=== PATIENT | male | born 1975 ===

== ENCOUNTER 2019-12-11 17:31 | Inpatient (IN) | payer OTHER ==
[2019-12-11] MEDS ORDERED: SODIUM CHLORIDE 0.9% 1000 ML 1,000 ML IV ONE ×2 (17:45→19:28)
[2019-12-11] MEDS ORDERED: ONDANSETRON 4 MG/2 ML INJ IV ONE ×2 (17:46→21:12)
[2019-12-11] MEDS ORDERED: MORPHINE 4 MG/1 ML INJ IV ONE ×2 (17:46→19:28)
--- NOTE | 2019-12-11 17:47 | Emergency Department Report ---
HPI - General Chief Complaint: Abdominal Pain Time Seen by Provider: 12/11/19 17:44 - HPI HPI: 44-year-old male presents to the emergency department with a complaint of generalized abdominal pain, worse in the upper abdomen, that has been going o n since this morning. He denies any fever, nausea, vomiting, diarrhea, constipation. He has a history of diabetes but is not on any medication for it. He has not taken anything for his symptoms prior to presentation. No recent travel or sick contacts at home. ED Past Medical Hx - Past Medical History Previous Medical History?: Yes Hx Diabetes: Yes - Surgical History Past Surgical History?: No - Social History Smoking Status: Never Smoker Substance Use Type: None ED Review of Systems ROS: Stated complaint: ABD PAIN/NAUSEA,VOMITING Other details as noted in HPI Comment: All other systems reviewed and negative Constitutional: denies: chills, fever Eyes: denies: eye pain, vision change ENT: denies: ear pain, throat pain Respiratory: denies: cough, shortness of breath Cardiovascular: denies: chest pain, palpitations Gastrointestinal: abdominal pain, nausea. denies: vomiting, diarrhea Genitourinary: denies: dysuria, discharge Musculoskeletal: denies: back pain, arthralgia Skin: denies: rash, lesions Neurological: denies: headache, weakness Physical Exam - Physical Exam Vital Signs: Vital Signs 12/11/19 17:35 Temperature 98.6 F Pulse Rate 81 Respiratory 16 Rate Blood Pressure 136/81 [Left] O2 Sat by Pulse 100 Oximetry Physical Exam: GENERAL: The patient is well-developed well-nourished. HENT: Normocephalic. Atraumatic. Patient has moist mucous membranes. EYES: Extraocular motions are intact. NECK: Supple. Trachea is midline. CHEST/LUNGS: Clear to auscultation. There is no respiratory distress noted. HEART/CARDIOVASCULAR: Regular. There is no tachycardia. There is no murmur. ABDOMEN: Abdomen is soft. There is tenderness to palpation worst in the upper quadrants. Patient has normal bowel sounds. There is no abdominal distention. SKIN: Skin is warm and dry. NEURO: The patient is awake, alert, and cooperative. The patient has no focal neurologic deficits. Normal speech. MUSCULOSKELETAL: There is no tenderness or deformity. There is no limitation range of motion. There is no evidence of acute injury. ED Course Vital Signs 12/11/19 17:35 Temperature 98.6 F Pulse Rate 81 Respiratory 16 Rate Blood Pressure 136/81 [Left] O2 Sat by Pulse 100 Oximetry ED Medical Decision Making - Lab Data Result diagrams: 12/11/19 17:45 12/11/19 17:45 - Radiology Data Radiology results: report reviewed, image reviewed interpreted by me: Abdominal x-ray shows nonspecific nonobstructive bowel gas CT of the abdomen and pelvis with contrast INDICATION: Abdominal pain COMPARISON: None FINDINGS: Lung bases are clear. There is moderate fatty liver. The spleen, adrenal glands and kidneys show no significant abnormalities with a 1 cm low density in the mid left kidney probably a cyst. Gallbladder is dilated but no gallstones or wall thickening. There is good enhancement of the pancreas. However, there are moderate peripancreatic inflammatory changes surrounding the head, body and tail consistent with moderate pancreatitis. No pancreatic ductal dilation or focal fluid collection. No adenopathy in the upper abdomen. There is minimal hiatal hernia. No definite gastric or duodenal wall thickening. CT of the pelvis shows a small umbilical hernia containing fat. Appendix is seen and is normal. Prostate is not enlarged. There is slight sigmoid diverticulosis without diverticulitis. No pelvic or inguinal adenopathy. No significant skeletal lesion. IMPRESSION: Moderate pancreatitis without definite complication. LIMITED RUQ ABDOMINAL ULTRASOUND INDICATION: Pancreatitis. COMPARISON: CT scan abdomen/pelvis 12/11/2019. FINDINGS: Pancreas: Indistinct margins consistent with CT findings of acute pancreatitis. Abdominal Aorta: Poorly visualized. IVC: No significant abnormality. Liver: Liver measures 18 cm with increased echogenicity due to fatty infiltration. Gallbladder: Normal. Sonographic Greenberg's sign: Not performed. Bile ducts: No visualized choledocholithiasis. Common bile duct measures 6 mm. Free fluid: None. Additional Findings: None. IMPRESSION: 1. Fatty liver. 2. Pancreatic findings consistent with pancreatitis. 3. No demonstrated choledocolithiasis - Medical Decision Making This patient presents with a one-day history of abdominal pain, nausea and vomiting. His labs show hyponatremia, elevated LFTs, elevated bilirubin, and an elevated lipase level greater than 2000. CT scan of the abdomen and pelvis with IV contrast shows acute pancreatitis. Due to the elevated LFTs and elevated bilirubin, an ultrasound of the abdomen was completed but it did not show any choledocholithiasis. Patient has received IV fluid resuscitation, antiemetics and a few doses of IV analgesia. The patient will be admitted to the hospital for further evaluation and treatment and was accepted for admission by the hospitalist, Dr. Jimenez. Critical Care Time: Yes Critical care time in (mins) excluding proc time.: 35 Critical care attestation.: If time is entered above; I have spent that time in minutes in the direct care of this critically ill patient, excluding procedure time. Due to the immediate potential for life-threatening deterioration due to underlying metabolic and gastrointestinal conditions, I spent 35 minutes of critical care time with the patient. Critical Care Time: 35 minutes ED Disposition Clinical Impression: Elevated liver enzymes, Intractable abdominal pain, Elevated bilirubin Acute pancreatitis Qualifiers: Pancreatitis type: unspecified pancreatitis type Acute pancreatitis complication: unspecified Qualified Code(s): K85.90 - Acute pancreatitis without necrosis or infection, unspecified Disposition: 09 OP ADMIT IP TO THIS HOSP Is pt being admited?: Yes Condition: Serious Referrals: PRIMARY CARE, [Primary Care Provider] - 3-5 Days Time of Disposition: 21:39
[2019-12-11 17:57] LABS: Mean Corpuscular HGB Conc 36 % (32-34); Mean Corpuscular Volume 87 fl (84-94); Platelet Count 115 K/mm3 (140-440); Red Blood Count 5.21 M/mm3 (3.65-5.03); Red Cell Distribution Width 13.7 % (13.2-15.2)
[2019-12-11 18:12] LABS: Hematocrit 45.3 % (35.5-45.6); Hemoglobin 16.2 gm/dl (11.8-15.2)
[2019-12-11 18:19] LABS: Albumin 3.7 g/dL (3.9-5); BUN/Creatinine Ratio 17; Blood Urea Nitrogen 10 mg/dL (9-20); Calcium 8.1 mg/dL (8.4-10.2); Hemolysis Index 21
[2019-12-11 18:33] LABS: Alanine Aminotransferase 753 units/L (7-56)
--- NOTE | 2019-12-11 18:34 | XRay Report ---
ABDOMEN, 2 VIEWS 12/11/2019 INDICATION / CLINICAL INFORMATION: Abd pain. COMPARISON: None available. FINDINGS: The bowel gas pattern is normal. No evidence of pneumoperitoneum. Signer Name: Liban Ojeda MD Signed: 12/11/2019 6:30 PM Workstation Name: [id number]
[2019-12-11 19:44] LABS: Basophils % (Manual) 0 % (0.0-1.8); Eosinophils % (Manual) 0 % (0.0-4.3); RBC Morphology Normal; Total Cells Counted 100
--- NOTE | 2019-12-11 19:54 | Cat Scan Report ---
CT of the abdomen and pelvis with contrast INDICATION: Abdominal pain COMPARISON: None FINDINGS: Lung bases are clear. There is moderate fatty liver. The spleen, adrenal glands and kidneys show no significant abnormalities with a 1 cm low density in the mid left kidney probably a cyst. Ga llbladder is dilated but no gallstones or wall thickening. There is good enhancement of the pancreas. However, there are moderate peripancreatic inflammatory changes surrounding the head, body and tail consistent with moderate pancreatitis. No pancreatic ductal dilation or focal fluid collection. No ad enopathy in the upper abdomen. There is minimal hiatal hernia. No definite gastric or duodenal wall t hickening. CT of the pelvis shows a small umbilical hernia containing fat. Appendix is seen and is normal. Prost ate is not enlarged. There is slight sigmoid diverticulosis without diverticulitis. No pelvic or ingu inal adenopathy. No significant skeletal lesion. IMPRESSION: Moderate pancreatitis without definite complication. Automated exposure control was utilized to diminish radiation dose. Signer Name: Kyle Garrido MD Signed: 12/11/2019 7:50 PM Workstation Name: [email or web address]
[2019-12-11] MEDS ORDERED: ONDANSETRON 4 MG/2 ML INJ ONE (21:14)
--- NOTE | 2019-12-11 21:28 | Ultrasound Report ---
LIMITED RUQ ABDOMINAL ULTRASOUND INDICATION: Pancreatitis. COMPARISON: CT scan abdomen/pelvis 12/11/2019. FINDINGS: Pancreas: Indistinct margins consistent with CT findings of acute pancreatitis. Abdominal Aorta: Poorly visualized. IVC: No significant abnormality. Liver: Liver measures 18 cm with increased echogenicity due to fatty infiltration. Gallbladder: Normal. Sonographic Greenberg's sign: Not performed. Bile ducts: No visualized choledocholithiasis. Common bile duct measures 6 mm. Free fluid: None. Additional Findings: None. IMPRESSION: 1. Fatty liver. 2. Pancreatic findings consistent with pancreatitis. 3. No demonstrated choledocolithiasis Signer Name: Liban Ojeda MD Signed: 12/11/2019 9:23 PM Workstation Name: [id number]
[2019-12-11 21:30] LABS: Bilirubin,Urine NEG (Negative); Blood,Urine NEG (Negative); Color,Urine Yellow (Yellow); Protein,Urine <15 mg/dL mg/dL (Negative); Urobilinogen,Urine < 2.0 mg/dL (<2.0)
[2019-12-11] MEDS ORDERED: ACETAMINOPHEN 325 MG TAB PO PRN (21:53)
[2019-12-11] MEDS ORDERED: DEXTROSE 50% IN WATER (25GM) 50 ML SYRINGE IV PRN (21:57)
--- NOTE | 2019-12-11 22:02 | History and Physical Report ---
History of Present Illness Date of examination: 12/11/19 Date of admission: 12/11/2019 Chief complaint: Nausea and vomiting Abdominal pain History of present illness: 44-year-old male with known history of diabetes mellitus presenting to the emergency room today complaining of abdominal pain which has been ongoing since this morning. He has been having nausea and vomiting, but denies any diarrhea and no constipation. No hematuria or dysuria. He denies any fever or chills, no chest pain or shortness of breath. He denies any sick contacts and no recent travel, denies contact with anyone with COVID-19. Patient states that he drinks alcohol but quit drinking few weeks ago. Work-up in the emergency room including CT scan of the abdomen shows elevated liver enzymes, elevated lipase, CT reveals pancreatitis. Past History Past Medical History: diabetes Past Surgical History: No surgical history Social history: no significant social history Family history: no significant family history Medications and Allergies Allergies Allergy/AdvReac Type Severity Reaction Status Date / Time No Known Allergies Allergy Verified 12/11/19 17:38 Home Medications Medication Instructions Recorded Confirmed Last Taken Type No Known Home Medications [No 12/12/19 12/12/19 Unknown History Reported Home Medications] Review of Systems Constitutional: no fever, no chills Cardiovascular: no chest pain, no palpitations Respiratory: no cough, no shortness of breath Gastrointestinal: abdominal pain, nausea, vomiting Genitourinary Male: no dysuria, no hematuria, no flank pain Musculoskeletal: no neck stiffness, no low back pain Integumentary: no rash, no pruritis Neurological: no headaches, no confusion Psychiatric: no anxiety, no depression Exam - Constitutional Vitals: Temp Pulse Resp BP Pulse Ox 99.0 F 89 13 139/87 98 12/11/19 19:28 12/11/19 19:24 12/11/19 19:24 12/11/19 19:24 12/11/19 19:00 General appearance: Present: no acute distress, well-nourished - EENT Eyes: Present: PERRL, EOM intact ENT: hearing intact, clear oral mucosa, dentition normal - Neck Neck: Present: supple, normal ROM - Respiratory Respiratory effort: normal Respiratory: bilateral: CTA - Cardiovascular Rhythm: regular Heart Sounds: Present: S1 & S2 - Extremities Extremities: no ischemia, pulses intact, pulses symmetrical, No edema, Full ROM Peripheral Pulses: within normal limits - Abdominal General gastrointestinal: Present: soft, tender (Diffuse tenderness with guardin g, no rebound tenderness), non-distended, normal bowel sounds - Integumentary Integumentary: Present: clear, warm, dry, normal turgor. Absent: jaundice, pale - Musculoskeletal Musculoskeletal: strength equal bilaterally - Psychiatric Psychiatric: appropriate mood/affect, intact judgment & insight, cooperative - Neurologic Neurologic: CNII-XII intact, moves all extremities, gait normal Results - Labs CBC & Chem 7: 12/12/19 05:14 12/12/19 05:14 Labs: Abnormal lab results 12/11/19 12/11/19 Range/Units 17:45 17:45 WBC 17.6 H (4.5-11.0) K/mm3 RBC 5.21 H (3.65-5.03) M/mm3 Hgb 16.2 H (11.8-15.2) gm/dl MCHC 36 H (32-34) % Plt Count 115 L (140-440) K/mm3 Seg Neuts % (Manual) 93.0 H (40.0-70.0) % Lymphocytes % (Manual) 4.0 L (13.4-35.0) % Seg Neutrophils # Man 16.4 H (1.8-7.7) K/mm3 Lymphocytes # (Manual) 0.7 L (1.2-5.4) K/mm3 Sodium 124 L (137-145) mmol/L Chloride 86.5 L (98-107) mmol/L Carbon Dioxide 18 L (22-30) mmol/L Creatinine 0.6 L (0.8-1.5) mg/dL Glucose 271 H (75-100) mg/dL Calcium 8.1 L (8.4-10.2) mg/dL Total Bilirubin 2.60 H (0.1-1.2) mg/dL Direct Bilirubin 1.0 H (0-0.2) mg/dL AST 419 H (5-40) units/L ALT 753 H (7-56) units/L Alkaline Phosphatase 175 H (35-129) units/L Albumin 3.7 L (3.9-5) g/dL Lipase 2144 H (13-60) units/L Assessment and Plan - Patient Problems (1) Acute pancreatitis Current Visit: Yes Status: Acute Qualifiers: Pancreatitis type: unspecified pancreatitis type Acute pancreatitis complication: unspecified Qualified Code(s): K85.90 - Acute pancreatitis without necrosis or infection, unspecified Plan to address problem: Patient admitted and placed n.p.o. we will place on analgesic medication and IV fluid. (2) Elevated liver enzymes Current Visit: Yes Status: Acute Plan to address problem: Etiology is unclear but will monitor chemistry. Possibly related to alcohol abuse. We will also place a consult to oil field equipment mechanic for further evaluation and recommendation on the elevated liver enzymes and bilirubin. Ultrasound of the abdomen consistent with fatty liver and pancreatitis. No choledocholithiasis. (3) Intractable abdominal pain Current Visit: Yes Status: Acute Plan to address problem: Possibly secondary to the pancreatitis. Patient placed on IV Zofran as needed. (4) DVT prophylaxis Current Visit: Yes Status: Acute Plan to address problem: Placed on subcutaneous heparin. (5) Full code status Current Visit: Yes Status: Acute
[2019-12-11] MEDS ORDERED: MORPHINE 2 MG/1 ML INJ ONE (22:14)
[2019-12-11] MEDS: MORPHINE 2 MG/1 ML INJ IV PRN (22:16)
[2019-12-11] MEDS ORDERED: HYDROmorphone 2 MG/1 ML INJ IV ONE (23:23)
[2019-12-11] MEDS: ONDANSETRON 4 MG/2 ML INJ IV PRN (23:37)
[2019-12-11] MEDS: SODIUM CHLORIDE 0.9% 1000 ML 1,000 ML IV SCH (23:44)
[2019-12-12] MEDS: MORPHINE 2 MG/1 ML INJ IV PRN ×6 (02:57→21:41)
[2019-12-12] MEDS: ONDANSETRON 4 MG/2 ML INJ IV PRN (06:01)
[2019-12-12] MEDS: INSULIN LISPRO 100 UNIT/ML SUB-Q SCH ×4 (06:01→17:35)
[2019-12-12] MEDS: SODIUM CHLORIDE 0.9% 1000 ML 1,000 ML IV SCH ×2 (06:02→21:50)
[2019-12-12 06:09] LABS: Hematocrit 48.8 % (35.5-45.6); Hemoglobin 17.1 gm/dl (11.8-15.2); Mean Corpuscular HGB Conc 35 % (32-34); Mean Corpuscular Volume 89 fl (84-94); Platelet Count 105 K/mm3 (140-440); Red Blood Count 5.49 M/mm3 (3.65-5.03); Red Cell Distribution Width 14.1 % (13.2-15.2)
[2019-12-12 06:18] LABS: INR 1.16 (0.87-1.13)
[2019-12-12 06:30] LABS: Alanine Aminotransferase 559 units/L (7-56); Albumin 3.4 g/dL (3.9-5); BUN/Creatinine Ratio 17; Bilirubin,Direct 2.3 mg/dL (0-0.2); Blood Urea Nitrogen 12 mg/dL (9-20); Calcium 7.1 mg/dL (8.4-10.2); Hemolysis Index 25
[2019-12-12 06:40] LABS: Hepatitis C Virus Antibody Non-Reactive (NonReactive)
[2019-12-12 07:01] LABS: Anisocytosis 1+; Band Neutrophils # (Manual) 0.6 K/mm3; Basophils % (Manual) 0 % (0.0-1.8); Eosinophils % (Manual) 0 % (0.0-4.3); Platelet Estimate Consistent w Auto; Total Cells Counted 100
[2019-12-12 07:21] LABS: Hepatitis B Surface Antigen Non-Reactive (Negative)
--- NOTE | 2019-12-12 08:57 | Gastroenterology Consultation ---
History of Present Illness - Reason for Consult Consult date: 12/12/19 Acute pancreatitis Requesting physician: KAMRYN SIMTH - History of Present Illness 44-year-old male with known history of diabetes mellitus presented with 2 days of severe abdominal pain. He reports the pain is sharp, worsening, started in the epigastric area but now is in the entire upper abdomen and it is radiating around to the back. Associated with severe nausea and vomiting. Constant. Improved with pain medication worse with movement or palpation. Patient states that he drinks alcohol but quit drinking about 1 week ago, did not drink an excessive amount for him just 6 beers. Work-up in the emergency room including CT scan of the abdomen shows elevated liver enzymes, elevated lipase, CT reveals pancreatitis. Past Medical History: diabetes Past Surgical History: No surgical history Social history: + for recent Et[employer] use Family history: no significant family history Please see med rec list for meds, no known drug allergies Obtained/updated/reviewed patient's current medications Past History Past Medical History: diabetes Past Surgical History: No surgical history Social history: no significant social history Family history: no significant family history Medications and Allergies Allergies Allergy/AdvReac Type Severity Reaction Status Date / Time No Known Allergies Allergy Verified 12/11/19 17:38 Home Medications Medication Instructions Recorded Confirmed Last Taken Type No Known Home Medications [No 12/12/19 12/12/19 Unknown History Reported Home Medications] Active Meds: Active Medications Acetaminophen (Tylenol) 650 mg PO Q4H PRN PRN Reason: Pain MILD(1-3)/Fever >100.5/MTZ Dextrose (D50w (25gm) Syringe) 0 ml IV Q30MIN PRN; Protocol PRN Reason: Hypoglycemia Sodium Chloride (Nacl 0.9% 1000 Ml) 1,000 mls @ 150 mls/hr IV DIRECT PRATIMA Last Admin: 12/12/19 06:02 Dose: 150 mls/hr Documented by: Insulin Human Lispro (Humalog) 0 unit SUB-Q Q6HR PRATIMA; Protocol Last Admin: 12/12/19 06:01 Dose: 2 unit Documented by: Morphine Sulfate (Morphine) 2 mg IV Q4H PRN PRN Reason: Pain, Moderate (4-6) Last Admin: 12/12/19 06:02 Dose: 2 mg Documented by: Ondansetron HCl (Zofran) 4 mg IV Q8H PRN PRN Reason: Nausea And Vomiting Last Admin: 12/12/19 06:01 Dose: 4 mg Documented by: Sodium Chloride (Sodium Chloride Flush Syringe 10 Ml) 10 ml IV BID PRATIMA Last Admin: 12/11/19 23:37 Dose: 10 ml Documented by: Sodium Chloride (Sodium Chloride Flush Syringe 10 Ml) 10 ml IV PRN PRN PRN Reason: LINE FLUSH Review of Systems - Review of Systems All systems: negative (10 Systems reviewed and negative except as mentioned above in the history of present illness) Exam - Constitutional Vital Signs: Temp Pulse Resp BP Pulse Ox 98.6 F 100 H 18 133/95 96 12/12/19 08:00 12/12/19 08:00 12/12/19 08:00 12/12/19 08:00 12/12/19 08:00 General appearance: mild distress - EENT Eyes: EOM intact - Neck Neck: supple - Respiratory Respiratory effort: normal Respiratory: bilateral: CTA - Cardiovascular Rhythm: regular Extremities: No edema - Gastrointestinal General gastrointestinal: Present: tender, distended - Integumentary Integumentary: Present: dry - Musculoskeletal Musculoskeletal: normal - Neurologic Neurological: alert and oriented x3 - Psychiatric Psychiatric: appropriate mood/affect - Labs CBC & Chem 7: 12/12/19 05:14 12/12/19 05:14 Lab Results: Laboratory Results - last 24 hr 12/11/19 12/11/19 12/11/19 17:45 17:45 21:24 WBC 17.6 H RBC 5.21 H Hgb 16.2 H Hct 45.3 MCV 87 MCH 31 MCHC 36 H RDW 13.7 Plt Count 115 L Add Manual Diff Complete Total Counted 100 Seg Neutrophils % Glassie Seg Neuts % (Manual) 93.0 H Band Neutrophils % 0 Lymphocytes % (Manual) 4.0 L Reactive Lymphs % (Man) 0 Monocytes % (Manual) 3.0 Eosinophils % (Manual) 0 Basophils % (Manual) 0 Metamyelocytes % 0 Myelocytes % 0 Promyelocytes % 0 Blast Cells % 0 Nucleated RBC % Not Reportable Seg Neutrophils # Man 16.4 H Band Neutrophils # 0.0 Lymphocytes # (Manual) 0.7 L Abs React Lymphs (Man) 0.0 Monocytes # (Manual) 0.5 Eosinophils # (Manual) 0.0 Basophils # (Manual) 0.0 Metamyelocytes # 0.0 Myelocytes # 0.0 Promyelocytes # 0.0 Blast Cells # 0.0 WBC Morphology Not Reportable Hypersegmented Neuts Not Reportable Hyposegmented Neuts Not Reportable Hypogranular Neuts Not Reportable Smudge Cells Not Reportable Toxic Granulation Not Reportable Toxic Vacuolation Not Reportable Dohle Bodies Not Reportable Pelger-Huet Anomaly Not Reportable Jeanne Rods Not Reportable Platelet Estimate Not Reportable Clumped Platelets Not Reportable Plt Clumps, EDTA Not Reportable Large Platelets Not Reportable Giant Platelets Not Reportable Platelet Satelliting Not Reportable Plt Morphology Comment Not Reportable RBC Morphology Normal Dimorphic RBCs Not Reportable Polychromasia Not Reportable Hypochromasia Not Reportable Poikilocytosis Not Reportable Anisocytosis Not Reportable Microcytosis Not Reportable Macrocytosis Not Reportable Spherocytes Not Reportable Pappenheimer Bodies Not Reportable Sickle Cells Not Reportable Target Cells Not Reportable Tear Drop Cells Not Reportable Ovalocytes Not Reportable Helmet Cells Not Reportable [place] Bodies Not Reportable [place] Rings Not Reportable Rebel Cells Not Reportable Bite Cells Not Reportable Crenated Cell Not Reportable Elliptocytes Not Reportable Acanthocytes (Spur) Not Reportable Rouleaux Not Reportable Hemoglobin C Crystals Not Reportable Schistocytes Not Reportable Malaria parasites Not Reportable Adrian Bodies Not Reportable Hem Pathologist Commnt No PT INR Sodium 124 L Potassium 3.8 Chloride 86.5 L Carbon Dioxide 18 L Anion Gap 23 BUN 10 Creatinine 0.6 L Estimated GFR > 60 BUN/Creatinine Ratio 17 Glucose 271 H POC Glucose Calcium 8.1 L Total Bilirubin 2.60 H Direct Bilirubin 1.0 H Indirect Bilirubin 1.6 AST 419 H ALT 753 H Alkaline Phosphatase 175 H Total Protein 7.0 Albumin 3.7 L Albumin/Globulin Ratio 1.1 Lipase 2144 H Urine Color Yellow Urine Turbidity Clear Urine pH 6.0 Ur Specific [place] 1.024 Urine Protein <15 mg/dl Urine Glucose (UA) 150 Urine Ketones Neg Urine Blood Neg Urine Nitrite Neg Urine Bilirubin Neg Urine Urobilinogen < 2.0 Ur Leukocyte Esterase Neg Urine WBC (Auto) 1.0 Urine RBC (Auto) 1.0 Hepatitis A IgM Ab Hep Bs Antigen Hep B Core IgM Ab Hepatitis C Antibody 12/12/19 12/12/19 12/12/19 00:12 05:14 05:14 WBC 15.6 H RBC 5.49 H Hgb 17.1 H Hct 48.8 H MCV 89 MCH 31 MCHC 35 H RDW 14.1 Plt Count 105 L Add Manual Diff Complete Total Counted 100 Seg Neutrophils % Seg Neuts % (Manual) 91.0 H Band Neutrophils % 4.0 Lymphocytes % (Manual) 1.0 L Reactive Lymphs % (Man) 0 Monocytes % (Manual) 4.0 Eosinophils % (Manual) 0 Basophils % (Manual) 0 Metamyelocytes % 0 Myelocytes % 0 Promyelocytes % 0 Blast Cells % 0 Nucleated RBC % Not Reportable Seg Neutrophils # Man 14.2 H Band Neutrophils # 0.6 Lymphocytes # (Manual) 0.2 L Abs React Lymphs (Man) 0.0 Monocytes # (Manual) 0.6 Eosinophils # (Manual) 0.0 Basophils # (Manual) 0.0 Metamyelocytes # 0.0 Myelocytes # 0.0 Promyelocytes # 0.0 Blast Cells # 0.0 WBC Morphology Not Reportable Hypersegmented Neuts Not Reportable Hyposegmented Neuts Not Reportable Hypogranular Neuts Not Reportable Smudge Cells Not Reportable Toxic Granulation Not Reportable Toxic Vacuolation Not Reportable Dohle Bodies Not Reportable Pelger-Huet Anomaly Not Reportable Jeanne Rods Not Reportable Platelet Estimate Consistent w auto Clumped Platelets Not Reportable Plt Clumps, EDTA Not Reportable Large Platelets Not Reportable Giant Platelets Not Reportable Platelet Satelliting Not Reportable Plt Morphology Comment Not Reportable RBC Morphology Not Reportable Dimorphic RBCs Not Reportable Polychromasia Not Reportable Hypochromasia Not Reportable Poikilocytosis Not Reportable Anisocytosis 1+ Microcytosis Not Reportable Macrocytosis Not Reportable Spherocytes Not Reportable Pappenheimer Bodies Not Reportable Sickle Cells Not Reportable Target Cells Not Reportable Tear Drop Cells Not Reportable Ovalocytes Not Reportable Helmet Cells Not Reportable [place] Bodies Not Reportable [place] Rings Not Reportable [place] Cells Not Reportable Bite Cells Not Reportable Crenated Cell Not Reportable Elliptocytes Not Reportable Acanthocytes (Spur) Not Reportable Rouleaux Not Reportable Hemoglobin C Crystals Not Reportable Schistocytes Not Reportable Malaria parasites Not Reportable Adrian Bodies Not Reportable Hem Pathologist Commnt No PT 14.9 INR 1.16 H Sodium Potassium Chloride Carbon Dioxide Anion Gap BUN Creatinine Estimated GFR BUN/Creatinine Ratio Glucose POC Glucose 179 H Calcium Total Bilirubin Direct Bilirubin Indirect Bilirubin AST ALT Alkaline Phosphatase Total Protein Albumin Albumin/Globulin Ratio Lipase Urine Color Urine Turbidity Urine pH Ur Specific [place] Urine Protein Urine Glucose (UA) Urine Ketones Urine Blood Urine Nitrite Urine Bilirubin Urine Urobilinogen Ur Leukocyte Esterase Urine WBC (Auto) Urine RBC (Auto) Hepatitis A IgM Ab Hep Bs Antigen Hep B Core IgM Ab Hepatitis C Antibody 12/12/19 12/12/19 12/12/19 05:14 05:14 05:50 WBC RBC Hgb Hct MCV MCH MCHC RDW Plt Count Add Manual Diff Total Counted Seg Neutrophils % Seg Neuts % (Manual) Band Neutrophils % Lymphocytes % (Manual) Reactive Lymphs % (Man) Monocytes % (Manual) Eosinophils % (Manual) Basophils % (Manual) Metamyelocytes % Myelocytes % Promyelocytes % Blast Cells % Nucleated RBC % Seg Neutrophils # Man Band Neutrophils # Lymphocytes # (Manual) Abs React Lymphs (Man) Monocytes # (Manual) Eosinophils # (Manual) Basophils # (Manual) Metamyelocytes # Myelocytes # Promyelocytes # Blast Cells # WBC Morphology Hypersegmented Neuts Hyposegmented Neuts Hypogranular Neuts Smudge Cells Toxic Granulation Toxic Vacuolation Dohle Bodies Pelger-Huet Anomaly Jeanne Rods Platelet Estimate Clumped Platelets Plt Clumps, EDTA Large Platelets Giant Platelets Platelet Satelliting Plt Morphology Comment RBC Morphology Dimorphic RBCs Polychromasia Hypochromasia Poikilocytosis Anisocytosis Microcytosis Macrocytosis Spherocytes Pappenheimer Bodies Sickle Cells Target Cells Tear Drop Cells Ovalocytes Helmet Cells [place] Bodies [place] Rings Bruce Cells Bite Cells Crenated Cell Elliptocytes Acanthocytes (Spur) Rouleaux Hemoglobin C Crystals Schistocytes Malaria parasites Adrian Bodies Hem Pathologist Commnt PT INR Sodium 131 L D Potassium 4.3 Chloride 92.8 L Carbon Dioxide 19 L Anion Gap 24 BUN 12 Creatinine 0.7 L Estimated GFR > 60 BUN/Creatinine Ratio 17 Glucose 291 H POC Glucose 237 H Calcium 7.1 L Total Bilirubin 4.80 H Direct Bilirubin 2.3 H Indirect Bilirubin 2.5 AST 290 H ALT 559 H Alkaline Phosphatase 153 H Total Protein 6.6 Albumin 3.4 L Albumin/Globulin Ratio 1.1 Lipase Urine Color Urine Turbidity Urine pH Ur Specific [place] Urine Protein Urine Glucose (UA) Urine Ketones Urine Blood Urine Nitrite Urine Bilirubin Urine Urobilinogen Ur Leukocyte Esterase Urine WBC (Auto) Urine RBC (Auto) Hepatitis A IgM Ab Non-reactive Hep Bs Antigen Non-reactive Hep B Core IgM Ab Non-reactive Hepatitis C Antibody Non-reactive 12/12/19 08:11 WBC RBC Hgb Hct MCV MCH MCHC RDW Plt Count Add Manual Diff Total Counted Seg Neutrophils % Seg Neuts % (Manual) Band Neutrophils % Lymphocytes % (Manual) Reactive Lymphs % (Man) Monocytes % (Manual) Eosinophils % (Manual) Basophils % (Manual) Metamyelocytes % Myelocytes % Promyelocytes % Blast Cells % Nucleated RBC % Seg Neutrophils # Man Band Neutrophils # Lymphocytes # (Manual) Abs React Lymphs (Man) Monocytes # (Manual) Eosinophils # (Manual) Basophils # (Manual) Metamyelocytes # Myelocytes # Promyelocytes # Blast Cells # WBC Morphology Hypersegmented Neuts Hyposegmented Neuts Hypogranular Neuts Smudge Cells Toxic Granulation Toxic Vacuolation Dohle Bodies Pelger-Huet Anomaly Jeanne Rods Platelet Estimate Clumped Platelets Plt Clumps, EDTA Large Platelets Giant Platelets Platelet Satelliting Plt Morphology Comment RBC Morphology Dimorphic RBCs Polychromasia Hypochromasia Poikilocytosis Anisocytosis Microcytosis Macrocytosis Spherocytes Pappenheimer Bodies Sickle Cells Target Cells Tear Drop Cells Ovalocytes Helmet Cells [place] Bodies [place] Rings Rebel Cells Bite Cells Crenated Cell Elliptocytes Acanthocytes (Spur) Rouleaux Hemoglobin C Crystals Schistocytes Malaria parasites Adrian Bodies Hem Pathologist Commnt PT INR Sodium Potassium Chloride Carbon Dioxide Anion Gap BUN Creatinine Estimated GFR BUN/Creatinine Ratio Glucose POC Glucose 265 H Calcium Total Bilirubin Direct Bilirubin Indirect Bilirubin AST ALT Alkaline Phosphatase Total Protein Albumin Albumin/Globulin Ratio Lipase Urine Color Urine Turbidity Urine pH Ur Specific [place] Urine Protein Urine Glucose (UA) Urine Ketones Urine Blood Urine Nitrite Urine Bilirubin Urine Urobilinogen Ur Leukocyte Esterase Urine WBC (Auto) Urine RBC (Auto) Hepatitis A IgM Ab Hep Bs Antigen Hep B Core IgM Ab Hepatitis C Antibody Assessment and Plan Patient with worsening hemoconcentration this morning which is a worrisome sign in the setting of severe acute pancreatitis Therefore I am giving another bolus of 1 L fluids, increasing his standing fluid dose from 150 cc an hour to 200 cc an hour Please monitor closely to ensure patient does not develop flash pulmonary edema I also increased his antinausea medication to a standing dose He may be started on a diet per the current updated guidelines regarding management of acute pancreatitis so I put in an order for clear liquids Regarding etiology for the acute pancreatitis, alcohol highest on the differential diagnosis. We will obtain triglycerides in the a.m. Regarding elevated liver enzymes, most likely acute alcoholic related imaging does not indicate biliary obstruction and acute hepatitis panel is negative Recommend continued to trend liver enzymes - Patient Problems (1) Acute pancreatitis Current Visit: Yes Status: Acute Qualifiers: Pancreatitis type: unspecified pancreatitis type Acute pancreatitis complication: unspecified Qualified Code(s): K85.90 - Acute pancreatitis without necrosis or infection, unspecified (2) Elevated bilirubin Current Visit: Yes Status: Acute (3) Elevated liver enzymes Current Visit: Yes Status: Acute (4) Intractable abdominal pain Current Visit: Yes Status: Acute
[2019-12-12] MEDS ORDERED: LACTATED RINGERS 1,000 ML IV ONE (10:00)
[2019-12-12] MEDS ORDERED: LORazepam 2 MG/ML VIAL IV PRN (11:00)
[2019-12-12] MEDS: ONDANSETRON 4 MG/2 ML INJ IV SCH ×2 (12:30→17:32)
--- NOTE | 2019-12-12 12:58 | Progress Note ---
Assessment and Plan /Acute pancreatitis cont on analgesic medication and IV fluid. GI following, will start clear liquid diet / Elevated liver enzymes likely from chronic alcohol abuse Ultrasound of the abdomen consistent with fatty liver and pancreatitis. No choledocholithiasis. / Intractable abdominal pain Possibly secondary to the pancreatitis. Patient placed on IV morphin as needed. /Alcohol abuse, counselled for cessation monitor for withdrawal, ativan as needed /DM type 2, SSI for now / DVT prophylaxis, SCD /Full code status 12/11: monitor BMP and LFT, cont iv fluid, pain meds as needed. will start on clear liquid diet today Brief History: 44-year-old male with known history of diabetes mellitus presented with 2 days of severe abdominal pain in the epigastric radiating around to the back associated with severe nausea and vomiting. Patient admits regular drinking, last drink was 4 days ago and had total 12 beer. Work-up in the emergency room shows elevated liver enzymes, elevated lipase, CT reveals pancreatitis. Admitted for further evaluation and Mx. Physical exam: General appearance: mild distress - EENT Eyes: EOM intact - Neck Neck: supple - Respiratory Respiratory effort: normal Respiratory: bilateral: CTA - Cardiovascular Rhythm: regular Extremities: No edema - Gastrointestinal General gastrointestinal: Present: tender, distended - Integumentary Integumentary: Present: dry - Musculoskeletal Musculoskeletal: normal - Neurologic Neurological: alert and oriented x3 - Psychiatric Psychiatric: appropriate mood/affect Subjective Date of service: 12/12/19 Interval history: Patient seen and examined. Medical records and medication list reviewed. No acute event overnight noted by the RN. Patient continued to complains of epigastric pain. Discussed plan of care at bedside with patient. Objective - Constitutional Vitals: Vital Signs - 12hr 12/12/19 12/12/19 04:10 08:00 Temperature 97.9 F 98.6 F Pulse Rate 108 H 100 H Respiratory 19 18 Rate Blood Pressure 137/96 133/95 O2 Sat by Pulse 95 96 Oximetry - Labs CBC & Chem 7: 12/13/19 04:57 12/13/19 04:57 Labs: Abnormal lab results 12/11/19 12/11/19 12/12/19 Range/Units 17:45 17:45 00:12 WBC 17.6 H (4.5-11.0) K/mm3 RBC 5.21 H (3.65-5.03) M/mm3 Hgb 16.2 H (11.8-15.2) gm/dl Hct (35.5-45.6) % MCHC 36 H (32-34) % Plt Count 115 L (140-440) K/mm3 Seg Neuts % (Manual) 93.0 H (40.0-70.0) % Lymphocytes % (Manual) 4.0 L (13.4-35.0) % Seg Neutrophils # Man 16.4 H (1.8-7.7) K/mm3 Lymphocytes # (Manual) 0.7 L (1.2-5.4) K/mm3 INR (0.87-1.13) Sodium 124 L (137-145) mmol/L Chloride 86.5 L (98-107) mmol/L Carbon Dioxide 18 L (22-30) mmol/L Creatinine 0.6 L (0.8-1.5) mg/dL Glucose 271 H (75-100) mg/dL POC Glucose 179 H (70-105) Calcium 8.1 L (8.4-10.2) mg/dL Total Bilirubin 2.60 H (0.1-1.2) mg/dL Direct Bilirubin 1.0 H (0-0.2) mg/dL AST 419 H (5-40) units/L ALT 753 H (7-56) units/L Alkaline Phosphatase 175 H (35-129) units/L Albumin 3.7 L (3.9-5) g/dL Lipase 2144 H (13-60) units/L 12/12/19 12/12/19 12/12/19 Range/Units 05:14 05:14 05:14 WBC 15.6 H (4.5-11.0) K/mm3 RBC 5.49 H (3.65-5.03) M/mm3 Hgb 17.1 H (11.8-15.2) gm/dl Hct 48.8 H (35.5-45.6) % MCHC 35 H (32-34) % Plt Count 105 L (140-440) K/mm3 Seg Neuts % (Manual) 91.0 H (40.0-70.0) % Lymphocytes % (Manual) 1.0 L (13.4-35.0) % Seg Neutrophils # Man 14.2 H (1.8-7.7) K/mm3 Lymphocytes # (Manual) 0.2 L (1.2-5.4) K/mm3 INR 1.16 H (0.87-1.13) Sodium 131 L D (137-145) mmol/L Chloride 92.8 L (98-107) mmol/L Carbon Dioxide 19 L (22-30) mmol/L Creatinine 0.7 L (0.8-1.5) mg/dL Glucose 291 H (75-100) mg/dL POC Glucose (70-105) Calcium 7.1 L (8.4-10.2) mg/dL Total Bilirubin 4.80 H (0.1-1.2) mg/dL Direct Bilirubin 2.3 H (0-0.2) mg/dL AST 290 H (5-40) units/L ALT 559 H (7-56) units/L Alkaline Phosphatase 153 H (35-129) units/L Albumin 3.4 L (3.9-5) g/dL Lipase (13-60) units/L 12/12/19 12/12/19 Range/Units 05:50 08:11 WBC (4.5-11.0) K/mm3 RBC (3.65-5.03) M/mm3 Hgb (11.8-15.2) gm/dl Hct (35.5-45.6) % MCHC (32-34) % Plt Count (140-440) K/mm3 Seg Neuts % (Manual) (40.0-70.0) % Lymphocytes % (Manual) (13.4-35.0) % Seg Neutrophils # Man (1.8-7.7) K/mm3 Lymphocytes # (Manual) (1.2-5.4) K/mm3 INR (0.87-1.13) Sodium (137-145) mmol/L Chloride (98-107) mmol/L Carbon Dioxide (22-30) mmol/L Creatinine (0.8-1.5) mg/dL Glucose (75-100) mg/dL POC Glucose 237 H 265 H (70-105) Calcium (8.4-10.2) mg/dL Total Bilirubin (0.1-1.2) mg/dL Direct Bilirubin (0-0.2) mg/dL AST (5-40) units/L ALT (7-56) units/L Alkaline Phosphatase (35-129) units/L Albumin (3.9-5) g/dL Lipase (13-60) units/L
[2019-12-12] MEDS: HEPARIN 5,000 UNIT/1 ML VIAL SUB-Q SCH (22:00)
[2019-12-13] MEDS: ONDANSETRON 4 MG/2 ML INJ IV SCH ×4 (00:04→18:34)
[2019-12-13] MEDS: MORPHINE 2 MG/1 ML INJ IV PRN ×4 (01:41→18:34)
[2019-12-13] MEDS: SODIUM CHLORIDE 0.9% 1000 ML 1,000 ML IV SCH ×2 (03:51→18:34)
[2019-12-13 05:34] LABS: Hemoglobin 16.2 gm/dl (11.8-15.2); Mean Corpuscular HGB Conc 35 % (32-34); Mean Corpuscular Volume 91 fl (84-94); Red Blood Count 5.14 M/mm3 (3.65-5.03); Red Cell Distribution Width 14.2 % (13.2-15.2)
[2019-12-13 05:37] LABS: Platelet Count 87 K/mm3 (140-440)
[2019-12-13 05:53] LABS: Alanine Aminotransferase 302 units/L (7-56); Albumin 2.8 g/dL (3.9-5); BUN/Creatinine Ratio 27; Bilirubin,Direct 4.1 mg/dL (0-0.2); Blood Urea Nitrogen 27 mg/dL (9-20); Calcium 6.3 mg/dL (8.4-10.2)
[2019-12-13] MEDS: HEPARIN 5,000 UNIT/1 ML VIAL SUB-Q SCH ×3 (06:35→21:54)
[2019-12-13] MEDS: INSULIN LISPRO 100 UNIT/ML SUB-Q SCH ×4 (06:36→17:09)
--- NOTE | 2019-12-13 08:42 | Gastroenterology Progress Note ---
Assessment and Plan Patient with gradually improving hemoconcentration this morning, but he remains tachycardic and hemoconcentrated therefore will give another bolus of normal saline and continue aggressive hydration though hyponatremia starting so will need to monitor closely Please monitor closely to ensure patient does not develop flash pulmonary edema Cont antinausea medication and pain control I will add on medication for the patient's constipation Patient's diet was advanced today at this morning, as long as he tolerates may continue current diet Regarding etiology for the acute pancreatitis, alcohol highest on the differential diagnosis. We will obtain triglycerides in the a.m. (tomorrow, the order didn't go through for this am); I ordered AM labs for tomorrow including INR Regarding elevated liver enzymes, most likely acute alcoholic related imaging does not indicate biliary obstruction and acute hepatitis panel is negative and alk phos normal despite the elevated bili Recommend continued to trend liver enzymes, and expect AST/ALT to continue gradual decline and the bili will lag by a day or two so will likely start to decline around Friday Regarding thrombocytopenia, may be combination of dilution plus alcohol related plus alcoholic hepatitis related. However, do need to be concerned about heparin-induced thrombocytopenia, consider evaluation for HIT if platelets continue to drop (went from 115 on admission to 80 today) - Patient Problems (1) Acute pancreatitis Current Visit: Yes Status: Acute Qualifiers: Pancreatitis type: unspecified pancreatitis type Acute pancreatitis complication: unspecified Qualified Code(s): K85.90 - Acute pancreatitis wit hout necrosis or infection, unspecified (2) Elevated bilirubin Current Visit: Yes Status: Acute (3) Elevated liver enzymes Current Visit: Yes Status: Acute (4) Intractable abdominal pain Current Visit: Yes Status: Acute Subjective Date of service: 12/13/19 Principal diagnosis: pancreatitis Interval history: Patient reports mild improvement in abdominal pain, still severe, sharp, radiating around to the back, originating in the upper abdomen spreading throughout the entire abdomen, constant, worse with palpation better with pain medication He reports no bowel movement in 6 days Reports he is passing gas and tolerating clear liquid diet Objective - Constitutional Vitals: Temp Pulse Resp BP Pulse Ox 98.3 F 122 H 18 121/90 95 12/13/19 04:07 12/13/19 04:07 12/13/19 04:07 12/13/19 04:07 12/13/19 04:07 General appearance: no acute distress - EENT ENT: hearing intact - Neck Neck: supple - Respiratory Respiratory: bilateral: CTA - Cardiovascular Rhythm: other (Tachycardic) - Extremities Extremities: No edema - Gastrointestinal General gastrointestinal: Present: tender, distended - Labs CBC & Chem 7: 12/13/19 04:57 12/13/19 04:57 Labs: Laboratory Results - last 24 hr 12/12/19 12/12/19 12/13/19 15:52 20:49 04:57 WBC 11.0 RBC 5.14 H Hgb 16.2 H Hct 47.0 H MCV 91 MCH 32 MCHC 35 H RDW 14.2 Plt Count 87 L Sodium Potassium Chloride Carbon Dioxide Anion Gap BUN Creatinine Estimated GFR BUN/Creatinine Ratio Glucose POC Glucose 344 H 292 H Calcium Total Bilirubin Direct Bilirubin Indirect Bilirubin AST ALT Alkaline Phosphatase Total Protein Albumin Albumin/Globulin Ratio 12/13/19 12/13/19 04:57 05:54 WBC RBC Hgb Hct MCV MCH MCHC RDW Plt Count Sodium 126 L Potassium 4.6 Chloride 88.1 L Carbon Dioxide 21 L Anion Gap 22 BUN 27 H Creatinine 1.0 Estimated GFR > 60 BUN/Creatinine Ratio 27 Glucose 365 H POC Glucose 306 H Calcium 6.3 L Total Bilirubin 5.80 H Direct Bilirubin 4.1 H Indirect Bilirubin 1.7 AST 144 H ALT 302 H Alkaline Phosphatase 106 Total Protein 6.1 L Albumin 2.8 L Albumin/Globulin Ratio 0.8
[2019-12-13 09:37] LABS: Band Neutrophils # (Manual) 2.3 K/mm3; Basophils % (Manual) 0 % (0.0-1.8); Eosinophils % (Manual) 0 % (0.0-4.3); Total Cells Counted 100
[2019-12-13] MEDS ORDERED: SODIUM CHLORIDE 0.9% 1000 ML 1,000 ML IV ONE (09:37)
[2019-12-13 09:38] LABS: RBC Morphology Normal
[2019-12-13 09:39] LABS: Platelet Estimate Consistent w Auto
[2019-12-13] MEDS: POLYETHYLENE GLYCOL 3350 17 GM POWDER PO SCH ×2 (11:20→21:54)
--- NOTE | 2019-12-13 14:52 | Progress Note ---
Assessment and Plan /Acute pancreatitis cont on analgesic medication and IV fluid. GI following, will advance to GI soft diet /SIRS with organ dysfunction, POA - due to pancreatitis, treat underlying cause / Elevated liver enzymes likely from chronic alcohol abuse Ultrasound of the abdomen consistent with fatty liver and pancreatitis. No choledocholithiasis. / Intractable abdominal pain Possibly secondary to the pancreatitis. Patient placed on IV morphin as needed. /Alcohol abuse, counselled for cessation monitor for withdrawal, ativan as needed /DM type 2, - on SSI. add long acting insulin, check a1c / DVT prophylaxis, SCD /Full code status 12/11: monitor BMP and LFT, cont iv fluid, pain meds as needed. will start on clear liquid diet today 12/12; advance diet, cont iv fluid. BG > 400, add long acting insulin, check a1c. if clinically stable, possible d/c charisma am Brief History: 44-year-old male with known history of diabetes mellitus presented with 2 days of severe abdominal pain in the epigastric radiating around to the back associated with severe nausea and vomiting. Patient admits regular drinking, last drink was 4 days ago and had total 12 beer. Work-up in the emergency room shows elevated liver enzymes, elevated lipase, CT reveals pancreatitis. Admitted for further evaluation and Mx. Physical exam: General appearance: mild distress - EENT Eyes: EOM intact - Neck Neck: supple - Respiratory Respiratory effort: normal Respiratory: bilateral: CTA - Cardiovascular Rhythm: regular Extremities: No edema - Gastrointestinal General gastrointestinal: Present: tender, distended - Integumentary Integumentary: Present: dry - Musculoskeletal Musculoskeletal: normal - Neurologic Neurological: alert and oriented x3 - Psychiatric Psychiatric: appropriate mood/affect Subjective Date of service: 12/13/19 Principal diagnosis: pancreatitis Interval history: Patient seen and examined. Medical records and medication list reviewed. No acute event overnight noted by the RN. Patient continued to complains of epigastric pain but states that improving. tolerated clear liquid, no vomiting but still has nausea Discussed plan of care at bedside with patient. Objective - Constitutional Vitals: Vital Signs - 12hr 12/13/19 12/13/19 04:07 08:19 Temperature 98.3 F 99.0 F Pulse Rate 122 H 129 H Respiratory 18 24 Rate Blood Pressure 121/90 125/88 O2 Sat by Pulse 95 96 Oximetry - Labs CBC & Chem 7: 12/14/19 05:09 12/14/19 05:09 Labs: Abnormal lab results 12/12/19 12/12/19 12/13/19 Range/Units 15:52 20:49 04:57 RBC 5.14 H (3.65-5.03) M/mm3 Hgb 16.2 H (11.8-15.2) gm/dl Hct 47.0 H (35.5-45.6) % MCHC 35 H (32-34) % Plt Count 87 L (140-440) K/mm3 Seg Neuts % (Manual) 74.0 H (40.0-70.0) % Lymphocytes % (Manual) 3.0 L (13.4-35.0) % Seg Neutrophils # Man 8.1 H (1.8-7.7) K/mm3 Lymphocytes # (Manual) 0.3 L (1.2-5.4) K/mm3 Sodium (137-145) mmol/L Chloride (98-107) mmol/L Carbon Dioxide (22-30) mmol/L BUN (9-20) mg/dL Glucose (75-100) mg/dL POC Glucose 344 H 292 H (70-105) Calcium (8.4-10.2) mg/dL Total Bilirubin (0.1-1.2) mg/dL Direct Bilirubin (0-0.2) mg/dL AST (5-40) units/L ALT (7-56) units/L Total Protein (6.3-8.2) g/dL Albumin (3.9-5) g/dL 12/13/19 12/13/19 12/13/19 Range/Units 04:57 05:54 12:27 RBC (3.65-5.03) M/mm3 Hgb (11.8-15.2) gm/dl Hct (35.5-45.6) % MCHC (32-34) % Plt Count (140-440) K/mm3 Seg Neuts % (Manual) (40.0-70.0) % Lymphocytes % (Manual) (13.4-35.0) % Seg Neutrophils # Man (1.8-7.7) K/mm3 Lymphocytes # (Manual) (1.2-5.4) K/mm3 Sodium 126 L (137-145) mmol/L Chloride 88.1 L (98-107) mmol/L Carbon Dioxide 21 L (22-30) mmol/L BUN 27 H (9-20) mg/dL Glucose 365 H (75-100) mg/dL POC Glucose 306 H 405 H (70-105) Calcium 6.3 L (8.4-10.2) mg/dL Total Bilirubin 5.80 H (0.1-1.2) mg/dL Direct Bilirubin 4.1 H (0-0.2) mg/dL AST 144 H (5-40) units/L ALT 302 H (7-56) units/L Total Protein 6.1 L (6.3-8.2) g/dL Albumin 2.8 L (3.9-5) g/dL
[2019-12-13] MEDS: INSULIN NPH, HUMAN 100 UNIT/1 ML SUB-Q SCH (17:09)
[2019-12-14] MEDS: INSULIN LISPRO 100 UNIT/ML SUB-Q SCH ×2 (01:08→05:43)
[2019-12-14] MEDS: ONDANSETRON 4 MG/2 ML INJ IV SCH ×2 (01:09→05:43)
[2019-12-14] MEDS: HEPARIN 5,000 UNIT/1 ML VIAL SUB-Q SCH (05:43)
[2019-12-14 06:03] LABS: Hematocrit 38.6 % (35.5-45.6); Hemoglobin 13.5 gm/dl (11.8-15.2); Mean Corpuscular HGB Conc 35 % (32-34); Mean Corpuscular Volume 90 fl (84-94); Red Blood Count 4.29 M/mm3 (3.65-5.03); Red Cell Distribution Width 14.3 % (13.2-15.2)
[2019-12-14 06:06] LABS: Platelet Count 94 K/mm3 (140-440)
[2019-12-14 06:13] LABS: INR 1.27 (0.87-1.13)
[2019-12-14 06:39] LABS: Alanine Aminotransferase 210 units/L (7-56); Albumin 2.5 g/dL (3.9-5); BUN/Creatinine Ratio 30; Bilirubin,Direct 3.4 mg/dL (0-0.2); Blood Urea Nitrogen 21 mg/dL (9-20); Calcium 6.2 mg/dL (8.4-10.2); HDL Cholesterol 13 mg/dL (40-59); Hemolysis Index 17; LDL Cholesterol,Direct 11 mg/dL (50-130)
[2019-12-14 06:57] LABS: Band Neutrophils # (Manual) 0.4 K/mm3; Basophils % (Manual) 0 % (0.0-1.8); Eosinophils % (Manual) 0 % (0.0-4.3); Platelet Estimate Consistent w Auto; Total Cells Counted 100
--- NOTE | 2019-12-14 08:39 | Gastroenterology Progress Note ---
Assessment and Plan Patient with continued improving hemoconcentration this morning. From GI perspective as improving can consider decreasing fluids and addressing the hyponatremia, and once hyponatremia is improving patient can be discharged I will modify diet per patient's request to be mostly fruits/vegetables Will decrease antinausea medication as may be contributing to the hyponatremia I will continue medication for the patient's constipation Regarding etiology for the acute pancreatitis, alcohol highest on the differential diagnosis. Awaiting lipid panel I ordered for today Regarding elevated liver enzymes, most likely acute alcoholic related imaging does not indicate biliary obstruction and acute hepatitis panel is negative LFT's improving Regarding thrombocytopenia, improving - Patient Problems (1) Acute pancreatitis Current Visit: Yes Status: Acute Qualifiers: Pancreatitis type: unspecified pancreatitis type Acute pancreatitis complication: unspecified Qualified Code(s): K85.90 - Acute pancreatitis without necrosis or infection, unspecified (2) Elevated bilirubin Current Visit: Yes Status: Acute (3) Elevated liver enzymes Current Visit: Yes Status: Acute (4) Intractable abdominal pain Current Visit: Yes Status: Acute Subjective Date of service: 12/14/19 Principal diagnosis: pancreatitis Interval history: Sodium continues to drop; rest of labs continue to improve however (hemoconcentration improved, LFT's improving, etc) Patient reports continue to feel better, if he eats simple fruits and vegetables he can tolerate a diet however heavier food he does not tolerate. Currently he reports his abdominal pain is mild to moderate epigastric worse with eating heavy food better with pain medication intermittent overall improving, sharp, nonradiating, associated with minimal nausea Reports had a good bowel movement Reports the nausea is mostly improved Objective - Constitutional Vitals: Temp Pulse Resp BP Pulse Ox 99.1 F 107 H 16 123/86 94 12/14/19 03:10 12/14/19 03:10 12/14/19 03:10 12/14/19 03:10 12/14/19 03:10 General appearance: no acute distress - EENT Eyes: scleral icterus (Mild, improving) - Respiratory Respiratory effort: normal - Gastrointestinal General gastrointestinal: Present: soft, tender - Labs CBC & Chem 7: 12/14/19 05:09 12/14/19 05:09 Labs: Laboratory Results - last 24 hr 12/13/19 12/13/19 12/13/19 04:57 04:57 12:27 WBC RBC Hgb Hct MCV MCH MCHC RDW Plt Count Add Manual Diff Complete Total Counted 100 Seg Neuts % (Manual) 74.0 H Band Neutrophils % 21.0 Lymphocytes % (Manual) 3.0 L Reactive Lymphs % (Man) 0 Monocytes % (Manual) 2.0 Eosinophils % (Manual) 0 Basophils % (Manual) 0 Metamyelocytes % 0 Myelocytes % 0 Promyelocytes % 0 Blast Cells % 0 Nucleated RBC % Not Reportable Seg Neutrophils # Man 8.1 H Band Neutrophils # 2.3 Lymphocytes # (Manual) 0.3 L Abs React Lymphs (Man) 0.0 Monocytes # (Manual) 0.2 Eosinophils # (Manual) 0.0 Basophils # (Manual) 0.0 Metamyelocytes # 0.0 Myelocytes # 0.0 Promyelocytes # 0.0 Blast Cells # 0.0 WBC Morphology Not Reportable Hypersegmented Neuts Not Reportable Hyposegmented Neuts Not Reportable Hypogranular Neuts Not Reportable Smudge Cells Not Reportable Toxic Granulation Not Reportable Toxic Vacuolation Not Reportable Dohle Bodies Not Reportable Pelger-Huet Anomaly Not Reportable Jeanne Rods Not Reportable Platelet Estimate Consistent w auto Clumped Platelets Not Reportable Plt Clumps, EDTA Not Reportable Large Platelets Not Reportable Giant Platelets Not Reportable Platelet Satelliting Not Reportable Plt Morphology Comment Not Reportable RBC Morphology Normal Dimorphic RBCs Not Reportable Polychromasia Not Reportable Hypochromasia Not Reportable Poikilocytosis Not Reportable Anisocytosis Not Reportable Microcytosis Not Reportable Macrocytosis Not Reportable Spherocytes Not Reportable Pappenheimer Bodies Not Reportable Sickle Cells Not Reportable Target Cells Not Reportable Tear Drop Cells Not Reportable Ovalocytes Not Reportable Helmet Cells Not Reportable [place] Bodies Not Reportable [place] Rings Not Reportable Rebel Cells Not Reportable Bite Cells Not Reportable Crenated Cell Not Reportable Elliptocytes Not Reportable Acanthocytes (Spur) Not Reportable Rouleaux Not Reportable Hemoglobin C Crystals Not Reportable Schistocytes Not Reportable Malaria parasites Not Reportable Adrian Bodies Not Reportable Hem Pathologist Commnt No PT INR Sodium Potassium Chloride Carbon Dioxide Anion Gap BUN Creatinine Estimated GFR BUN/Creatinine Ratio Glucose POC Glucose 405 H Hemoglobin A1c 6.4 H Calcium Total Bilirubin Direct Bilirubin Indirect Bilirubin AST ALT Alkaline Phosphatase Total Protein Albumin Albumin/Globulin Ratio Triglycerides Cholesterol LDL Cholesterol Direct HDL Cholesterol Cholesterol/HDL Ratio 12/13/19 12/13/19 12/14/19 16:33 18:04 00:04 WBC RBC Hgb Hct MCV MCH MCHC RDW Plt Count Add Manual Diff Total Counted Seg Neuts % (Manual) Band Neutrophils % Lymphocytes % (Manual) Reactive Lymphs % (Man) Monocytes % (Manual) Eosinophils % (Manual) Basophils % (Manual) Metamyelocytes % Myelocytes % Promyelocytes % Blast Cells % Nucleated RBC % Seg Neutrophils # Man Band Neutrophils # Lymphocytes # (Manual) Abs React Lymphs (Man) Monocytes # (Manual) Eosinophils # (Manual) Basophils # (Manual) Metamyelocytes # Myelocytes # Promyelocytes # Blast Cells # WBC Morphology Hypersegmented Neuts Hyposegmented Neuts Hypogranular Neuts Smudge Cells Toxic Granulation Toxic Vacuolation Dohle Bodies Pelger-Huet Anomaly Jeanne Rods Platelet Estimate Clumped Platelets Plt Clumps, EDTA Large Platelets Giant Platelets Platelet Satelliting Plt Morphology Comment RBC Morphology Dimorphic RBCs Polychromasia Hypochromasia Poikilocytosis Anisocytosis Microcytosis Macrocytosis Spherocytes Pappenheimer Bodies Sickle Cells Target Cells Tear Drop Cells Ovalocytes Helmet Cells [place] Bodies [place] Rings Rebel Cells Bite Cells Crenated Cell Elliptocytes Acanthocytes (Spur) Rouleaux Hemoglobin C Crystals Schistocytes Malaria parasites Adrian Bodies Hem Pathologist Commnt PT INR Sodium Potassium Chloride Carbon Dioxide Anion Gap BUN Creatinine Estimated GFR BUN/Creatinine Ratio Glucose POC Glucose 351 H 351 H 298 H Hemoglobin A1c Calcium Total Bilirubin Direct Bilirubin Indirect Bilirubin AST ALT Alkaline Phosphatase Total Protein Albumin Albumin/Globulin Ratio Triglycerides Cholesterol LDL Cholesterol Direct HDL Cholesterol Cholesterol/HDL Ratio 12/14/19 12/14/19 12/14/19 05:09 05:09 05:09 WBC 8.3 RBC 4.29 Hgb 13.5 Hct 38.6 D MCV 90 MCH 32 MCHC 35 H RDW 14.3 Plt Count 94 L Add Manual Diff Complete Total Counted 100 Seg Neuts % (Manual) 72.0 H Band Neutrophils % 5.0 Lymphocytes % (Manual) 11.0 L Reactive Lymphs % (Man) 0 Monocytes % (Manual) 11.0 H Eosinophils % (Manual) 0 Basophils % (Manual) 0 Metamyelocytes % 1.0 Myelocytes % 0 Promyelocytes % 0 Blast Cells % 0 Nucleated RBC % Not Reportable Seg Neutrophils # Man 6.0 Band Neutrophils # 0.4 Lymphocytes # (Manual) 0.9 L Abs React Lymphs (Man) 0.0 Monocytes # (Manual) 0.9 H Eosinophils # (Manual) 0.0 Basophils # (Manual) 0.0 Metamyelocytes # 0.1 Myelocytes # 0.0 Promyelocytes # 0.0 Blast Cells # 0.0 WBC Morphology Not Reportable Hypersegmented Neuts Not Reportable Hyposegmented Neuts Not Reportable Hypogranular Neuts Not Reportable Smudge Cells Not Reportable Toxic Granulation Not Reportable Toxic Vacuolation Not Reportable Dohle Bodies Not Reportable Pelger-Huet Anomaly Not Reportable Jeanne Rods Not Reportable Platelet Estimate Consistent w auto Clumped Platelets Not Reportable Plt Clumps, EDTA Not Reportable Large Platelets Not Reportable Giant Platelets Not Reportable Platelet Satelliting Not Reportable Plt Morphology Comment Not Reportable RBC Morphology Not Reportable Dimorphic RBCs Not Reportable Polychromasia Not Reportable Hypochromasia Not Reportable Poikilocytosis Not Reportable Anisocytosis Not Reportable Microcytosis Not Reportable Macrocytosis Not Reportable Spherocytes Not Reportable Pappenheimer Bodies Not Reportable Sickle Cells Not Reportable Target Cells Not Reportable Tear Drop Cells Not Reportable Ovalocytes Not Reportable Helmet Cells Not Reportable [place] Bodies Not Reportable [place] Rings Not Reportable Rebel Cells Not Reportable Bite Cells Not Reportable Crenated Cell Not Reportable Elliptocytes Not Reportable Acanthocytes (Spur) Not Reportable Rouleaux Not Reportable Hemoglobin C Crystals Not Reportable Schistocytes Not Reportable Malaria parasites Not Reportable Adrian Bodies Not Reportable Hem Pathologist Commnt No PT 16.0 H INR 1.27 H Sodium 121 L Potassium 4.2 Chloride 87.4 L Carbon Dioxide 20 L Anion Gap 18 BUN 21 H Creatinine 0.7 L Estimated GFR > 60 BUN/Creatinine Ratio 30 Glucose 285 H POC Glucose Hemoglobin A1c Calcium 6.2 L Total Bilirubin 4.80 H Direct Bilirubin 3.4 H Indirect Bilirubin 1.4 AST 127 H ALT 210 H Alkaline Phosphatase 95 Total Protein 5.9 L Albumin 2.5 L Albumin/Globulin Ratio 0.7 Triglycerides 309 H Cholesterol 78 LDL Cholesterol Direct 11 L HDL Cholesterol 13 L Cholesterol/HDL Ratio 6.00 06/02/20 05:29 WBC RBC Hgb Hct MCV MCH MCHC RDW Plt Count Add Manual Diff Total Counted Seg Neuts % (Manual) Band Neutrophils % Lymphocytes % (Manual) Reactive Lymphs % (Man) Monocytes % (Manual) Eosinophils % (Manual) Basophils % (Manual) Metamyelocytes % Myelocytes % Promyelocytes % Blast Cells % Nucleated RBC % Seg Neutrophils # Man Band Neutrophils # Lymphocytes # (Manual) Abs React Lymphs (Man) Monocytes # (Manual) Eosinophils # (Manual) Basophils # (Manual) Metamyelocytes # Myelocytes # Promyelocytes # Blast Cells # WBC Morphology Hypersegmented Neuts Hyposegmented Neuts Hypogranular Neuts Smudge Cells Toxic Granulation Toxic Vacuolation Dohle Bodies Pelger-Huet Anomaly Jeanne Rods Platelet Estimate Clumped Platelets Plt Clumps, EDTA Large Platelets Giant Platelets Platelet Satelliting Plt Morphology Comment RBC Morphology Dimorphic RBCs Polychromasia Hypochromasia Poikilocytosis Anisocytosis Microcytosis Macrocytosis Spherocytes Pappenheimer Bodies Sickle Cells Target Cells Tear Drop Cells Ovalocytes Helmet Cells [place] Bodies [place] Rings Beecher Cells Bite Cells Crenated Cell Elliptocytes Acanthocytes (Spur) Rouleaux Hemoglobin C Crystals Schistocytes Malaria parasites Adrian Bodies Hem Pathologist Commnt PT INR Sodium Potassium Chloride Carbon Dioxide Anion Gap BUN Creatinine Estimated GFR BUN/Creatinine Ratio Glucose POC Glucose 272 H Hemoglobin A1c Calcium Total Bilirubin Direct Bilirubin Indirect Bilirubin AST ALT Alkaline Phosphatase Total Protein Albumin Albumin/Globulin Ratio Triglycerides Cholesterol LDL Cholesterol Direct HDL Cholesterol Cholesterol/HDL Ratio
[2019-12-14] MEDS: POLYETHYLENE GLYCOL 3350 17 GM POWDER PO SCH (10:57)
[2019-12-14] MEDS: INSULIN NPH, HUMAN 100 UNIT/1 ML SUB-Q SCH (10:57)
[2019-12-14 12:43] VITALS: BP 136/91
--- NOTE | 2019-12-14 13:17 | Discharge Summary ---
Providers - Providers Date of Admission: 12/11/19 21:39 Date of discharge: 12/14/19 Attending physician: PENG PERRY 12/11/19 21:53 Consult to Physician [CONS] Routine Comment: Consulting Provider: PARISH LARSON Physician Instructions: Reason For Exam: acute pancreatitis, elevated liver enzymes 12/11/19 21:57 Consult to Dietitian/Nutrition [CONS] Routine Physician Instructions: Reason For Exam: Reason for Consult: Diet education Primary care physician: MEDICAL LAB SCIENTIST Hospitalization Condition: Serious Hospital course: 44-year-old male with known history of diabetes mellitus presented with 2 days of severe abdominal pain in the epigastric radiating around to the back associated with severe nausea and vomiting. Patient admits regular drinking, last drink was 4 days ago and had total 12 beer. Work-up in the emergency room showed elevated liver enzymes, elevated lipase, CT revealed pancreatitis. Admitted for further evaluation and Mx. 12/11: monitor BMP and LFT, cont iv fluid, pain meds as needed. will start on clear liquid diet today 12/12; advance diet, cont iv fluid. BG > 400, add long acting insulin, check a1c. 12/13: Na 121 today, iv fluid discontinued. Patient suddenly left the hospital after signing AMA. Discharge diagnosis: /Acute pancreatitis, alcohol induced /SIRS with organ dysfunction, POA - due to pancreatitis, / Elevated liver enzymes likely from chronic alcohol abuse Ultrasound of the abdomen consistent with fatty liver and pancreatitis. No choledocholithiasis. / Intractable abdominal pain Possibly secondary to the pancreatitis. /Alcohol abuse, counselled for cessation monitored for withdrawal, ativan as needed /DM type 2, placed on insulin / DVT prophylaxis, SCD /Full code status Disposition: [id number] LEFT AGAINST MED ADVICE Core Measure Documentation - Palliative Care Palliative Care/ Comfort Measures: Not Applicable - Core Measures Any of the following diagnoses?: none Exam - Constitutional Vitals: Temp Pulse Resp BP Pulse Ox 98.6 F 97 H 18 136/91 96 12/14/19 12:08 12/14/19 12:08 12/14/19 12:08 12/14/19 12:08 12/14/19 12:08 Plan Follow up with: PRIMARY CAREMD [Primary Care Provider] - 3-5 Days
--- NOTE | 2019-12-14 13:18 | Event Note ---
Date: 12/14/19 patient pulled out iv lines, showed up at the nursing station all dressed up and just left the hospital.
[2019-12-14] MEDS ORDERED: INSULIN NPH, HUMAN 100 UNIT/1 ML SUB-Q SCH (13:30)
== END 2019-12-14 12:50 | disposition left against medical advice (07) | DRG 438 ==
LOC: ED 17:31 → 4A 21:39
PROVIDERS: ADMIT Internal Medicine Geriatric Medicine; ATTEND Internal Medicine
DX: K85.20 Alcohol induced acute pancreatitis without necrosis or infection (principal); R65.11 Systemic inflammatory response syndrome (SIRS) of non-infectious origin with acute organ dysfunction; F10.19 Alcohol abuse with unspecified alcohol-induced disorder; E11.9 Type 2 diabetes mellitus without complications; Y90.9 Presence of alcohol in blood, level not specified; E80.6 Other disorders of bilirubin metabolism; Z79.4 Long term (current) use of insulin
CPT/HCPCS: 36415; 74019; 74177; 76705; 80048; 80061; 80074; 80076; 81001; 82962; 83036; 83690; 85007; 85025; 85610; G0378; J1170; J1644; J1815; J2270; J2405; J7030; J7120; Q9967